=== PATIENT | female | born 1950 | race Caucasian/White ===

== ENCOUNTER 2017-08-22 10:00 | Day surgery (SDC) | payer MEDICARE, BC ==
[~2017-08-22 10:00] MED LIST: Acetaminophen 325 MG Tab PO PRN; Cataract Ophth Solution EYELF ONE; Moxifloxacin 0.5% Ophth Soln 3 ML Bottle EYELF ONE; Ondansetron 4 MG/2 ML SDV IVPUSH PRN; Phenylephrine 10% Ophth Soln 5 ML Bot EYELF ONE; Phenylephrine 10% Ophth Soln 5 ML Bot EYELF PRN; Povidone-Iodine 5% Sterile Ophth Soln 30 ML Bottle EYELF ONE; Proparacaine 0.5% Ophth Soln 15 ML Bottle EYELF ONE; Sodium Chloride 0.9% 10 ML Syringe FLUSH PRN; Timolol Maleate 0.5% Ophth Soln 5 ML Bottle EYELF ONE
[2017-08-22] MEDS ORDERED: Sodium Chloride 0.9% 10 ML Syringe IV ONE (10:01)
[2017-08-22] MEDS ORDERED: Midazolam 1 MG/ML 2 ML SDV IV ONE (10:01)
[2017-08-22] MEDS ORDERED: Dexamethasone 4 MG/ML SDV IV ONE (10:01)
[2017-08-22] MEDS ORDERED: Tetracaine HCl/PF 0.5% 4 ML Bottle EYELF ONE (10:49)
[2017-08-22] MEDS ORDERED: Povidone-Iodine 5% Sterile Ophth Soln 30 ML Bottle EYELF ONE (10:49)
[2017-08-22] MEDS ORDERED: Lidocaine 1% 30 ML SDV ONE (10:49)
[2017-08-22] MEDS ORDERED: Dexamethasone/Neomycin/Polymyxin B Ophth Oint 3.5 GM Tube EYELF ONE (10:50)
[2017-08-22] MEDS ORDERED: Apraclonidine 0.5% Ophth Soln 5 ML Bot EYELF ONE (10:50)
[2017-08-22] MEDS ORDERED: Chondroitin Sulfate/Hyaluronate Sodium Ophth Inj 0.75 ML Syringe EYELF ONE (10:51)
[2017-08-22] MEDS ORDERED: Balanced Salt Solution Ophth Irrig 500 ML Bottle IOCULAR ONE (10:51)
[2017-08-22] MEDS ORDERED: Vancomycin 500 MG SDV EYELF ONE (10:51)
--- NOTE | 2017-08-22 11:39 | OR ---
DATE: 08/22/2017 PREOPERATIVE DIAGNOSIS: Visually significant mixed cataract, left eye. POSTOPERATIVE DIAGNOSIS: Visually significant mixed cataract, left eye. PROCEDURE: Extracapsular cataract extraction with intraocular lens implant, left eye. ANESTHESIA: Topical/local MAC. COMPLICATIONS: None. INDICATION: Ms. Cheung was seen in the clinic. She has complained of a slow progressive decrease in vision. The clinical examination revealed visually significant cataract. I explained options; I offered cataract surgery; and I explained risks including but not limited to infection, retinal detachment, loss of vision, and need for additional surgery amongst others. We discussed implant options. She has requested a Symfony implant. I did explain the increased potential for glare, halo, and dysphotopsia. I also explained that she may still require glasses for some activities. She is symptomatic, voiced an understanding with respect to risks, limitations, and wished to proceed. OPERATIVE DESCRIPTION: After informed consent was obtained and the risks, benefits, and alternatives were explained, the patient was brought to the operative suite and topical anesthesia was administered. The patient was then prepped and draped in the sterile fashion, and attention was placed on the left eye. A sterile lid speculum was placed into the left eye to allow operative exposure. A full-thickness paracentesis was made in the temporal portion of the operative eye. Preservative-free lidocaine 0.1 mL was injected into the anterior chamber followed by viscoelastic. A full-thickness corneal incision was then made into the anterior chamber. A bent needle cystotome was used to create a small juanpablo in the anterior capsule. The capsulorrhexis forceps was then used to create a 360-degree curvilinear capsulorrhexis. The nucleus was then removed using a phacoemulsification handpiece, and the remaining cortical material was then removed with irrigation and aspiration handpiece. Following removal of the cortical material, the capsular bag was then inspected and noted to be free of any holes or tears. Viscoelastic was then injected into the capsular bag, and the intraocular lens was inserted into the capsular bag. The viscoelastic material was then removed from both the anterior and posterior chambers and from behind the IOL. The lens and capsular bag were then reinspected. The IOL was well centered, and the capsular bag intact. The wound and paracentesis sites were inspected and hydrated with balanced saline solution. Both were found to be self-sealing. The intraocular pressure was assessed digitally and found to be within normal range. A good red reflex was noted at the completion of the procedure. No complications occurred during the operation. At the completion of the procedure, Maxitrol, Voltaren, and Iopidine drops were placed into the operative eye. A sterile eye shield was placed over the operative eye, and the patient was transported to the postoperative recovery area having tolerated the procedure well. Postoperative instructions were given along with a postoperative appointment. The patient was advised to call with any questions or concerns. [facility] /[id number]
[2017-08-22 13:24] VITALS: BP 121/67
== END 2017-08-22 11:50 | disposition home or self-care (01) ==
LOC: DL.SDS 10:00
PROVIDERS: ATTEND Ophthalmology
DX: H25.812 Combined forms of age-related cataract, left eye (principal); I10 Essential (primary) hypertension; E66.9 Obesity, unspecified; Z68.38 Body mass index [BMI] 38.0-38.9, adult; F32.9 Major depressive disorder, single episode, unspecified; Z87.891 Personal history of nicotine dependence; Z79.899 Other long term (current) drug therapy; Z88.0 Allergy status to penicillin; Z88.7 Allergy status to serum and vaccine
CPT/HCPCS: 00142; 66984; A9270; J1100; J2250; J3370; J7050

== ENCOUNTER 2018-10-24 05:52 | Day surgery (SDC) | payer MEDICARE, BC ==
[2018-10-24] MEDS ORDERED: Midazolam 1 MG/ML 2 ML SDV IV ONE ×7 (05:53→07:11)
[2018-10-24] MEDS ORDERED: fentaNYL 100 MCG/2 ML SDV IV ONE ×5 (05:53→07:13)
[2018-10-24] MEDS ORDERED: Sodium Chloride 0.9% 10 ML Syringe FLUSH PRN (06:00)
[2018-10-24] MEDS ORDERED: Dextrose 5%-0.45% NaCl 1,000 ML IV SCH (06:00)
[2018-10-24] MEDS ORDERED: Midazolam 1 MG/ML 2 ML SDV ONE (06:18)
[2018-10-24] MEDS ORDERED: fentaNYL 100 MCG/2 ML SDV ONE (06:19)
[2018-10-24 10:59] VITALS: BP 121/83
--- NOTE | 2018-10-24 13:22 | OR ---
DATE: 10/24/2018 PROCEDURE PERFORMED: Total colonoscopy, NBI, and cold snare polypectomy. INSTRUMENT USED: [id number] Olympus video colonoscope. PREMEDICATIONS: Fentanyl 150 mcg intravenous, Versed 4 mg intravenous, and nasal O2 cannula. The procedure was done under pulse oximetry, BP recording, and engine monitor. INDICATION: Screening colonoscopic examination is done for detection of any polypoid lesions and removal, endoscopic hemostasis therapy if needed. DESCRIPTION OF PROCEDURE: Initial rectal exam was unremarkable. Rigid anoscopy was normal. Colonoscope was passed with ease. Numerous scattered diverticula were noted in the colon, more so distal left colon along with deformity. The scope was passed with ease up to the ileocecal area. Photographs were taken of the normal-appearing cecum identified by landmarks of appendiceal orifice and double-bulged ileocecal folds. No bleeding was noted from any of the visualized areas at the commencement of the examination. The bowel preparation was found to be adequate, [place] scale 2 in all the regions. No stricture, no vascular ectasia. No large isolated ulcerations seen. No evidence of diffuse inflammatory bowel disease in the form of friability, contact bleeding, or ulcerations. Probing the proximal sides of folds and flexures using adequate distention and clearing of the stool material, withdrawal of the scope was made. In the hepatic flexure area, superficial 1-cm sized benign-appearing sessile polyp was noted, NBI views were obtained. Photographs were taken. Piecemeal polypectomy was done, and the tissues were retrieved and sent for histopathology. No bleeding was noted from any of the visualized areas at the completion of examination. IMPRESSION: 1. Diverticulosis. 2. Colonic polyp. The patient tolerated the procedure well. [facility] /[id number]
--- NOTE | 2018-10-24 13:52 | LETTER ---
10/24/2018 Melvi Rosas MD [address] [place] [id number] RE: HARRISMUKESHGEORGEJULES ELIZONDO : [address] Rosas: Ms. George Harris had colonoscopic examination done this morning and she tolerated the procedure well. I herewith send a copy of the endoscopy note and photographs for your review. Thank you. Sincerely, [facility] /[id number]
== END 2018-10-24 09:34 | disposition home or self-care (01) ==
LOC: DL.ENDO 05:52
PROVIDERS: ATTEND Internal Medicine Gastroenterology
DX: D12.3 Benign neoplasm of transverse colon (principal); K57.30 Diverticulosis of large intestine without perforation or abscess without bleeding; I10 Essential (primary) hypertension; J45.909 Unspecified asthma, uncomplicated; E66.09 Other obesity due to excess calories; Z88.0 Allergy status to penicillin; Z88.7 Allergy status to serum and vaccine; Z79.82 Long term (current) use of aspirin; Z68.36 Body mass index [BMI] 36.0-36.9, adult
CPT/HCPCS: 45385; J2250; J3010; J7042

== ENCOUNTER 2022-08-11 05:22 | Day surgery (SDC) | payer MEDICARE, BC ==
[~2022-08-11 05:22] MED LIST changes: -Acetaminophen 325 MG Tab PO PRN; -Cataract Ophth Solution EYELF ONE; +Dextrose 5%-0.45% NaCl 1,000 ML IV SCH; -Moxifloxacin 0.5% Ophth Soln 3 ML Bottle EYELF ONE; -Ondansetron 4 MG/2 ML SDV IVPUSH PRN; -Phenylephrine 10% Ophth Soln 5 ML Bot EYELF ONE; -Phenylephrine 10% Ophth Soln 5 ML Bot EYELF PRN; -Povidone-Iodine 5% Sterile Ophth Soln 30 ML Bottle EYELF ONE; -Proparacaine 0.5% Ophth Soln 15 ML Bottle EYELF ONE; +Sodium Chloride 0.9% 10 ML Syringe FLUSH SCH; -Timolol Maleate 0.5% Ophth Soln 5 ML Bottle EYELF ONE
[2022-08-11] MEDS ORDERED: Dextrose 5%-0.45% NaCl 1,000 ML IV SCH (06:00)
[2022-08-11 09:15] VITALS: BP 101/61; PULSE 72
== END 2022-08-11 09:22 | disposition home or self-care (01) ==
LOC: DL.ENDO 05:22
PROVIDERS: ATTEND Internal Medicine Gastroenterology
DX: K63.5 Polyp of colon (principal); K57.30 Diverticulosis of large intestine without perforation or abscess without bleeding; K55.20 Angiodysplasia of colon without hemorrhage; E66.9 Obesity, unspecified; J45.909 Unspecified asthma, uncomplicated; I10 Essential (primary) hypertension; F32.A Depression, unspecified; Z88.0 Allergy status to penicillin; Z88.7 Allergy status to serum and vaccine; Z98.890 Other specified postprocedural states; Z90.710 Acquired absence of both cervix and uterus; Z79.899 Other long term (current) drug therapy; Z68.35 Body mass index [BMI] 35.0-35.9, adult
CPT/HCPCS: 00813; J7042

== ENCOUNTER 2024-08-06 21:25 | Emergency (ER) | payer MEDICARE, BC ==
[2024-08-06] MEDS: oxyCODONE 5 MG Tab PO ONE (22:52)
[2024-08-07] MEDS: oxyCODONE 5 MG Tab PO ONE (00:02)
[2024-08-07] MEDS: Take Home: Acetaminophen/HYDROcodone 325-5 MG, 5 Tab Pack PO ONE (00:03)
[2024-08-07 00:20] VITALS: BP 127/96; PULSE 91
== END 2024-08-07 00:06 | disposition home or self-care (01) ==
LOC: DL.ED 21:25
DX: S01.01XA Laceration without foreign body of scalp, initial encounter (principal); S86.912A Strain of unspecified muscle(s) and tendon(s) at lower leg level, left leg, initial encounter; S20.212A Contusion of left front wall of thorax, initial encounter; I25.10 Atherosclerotic heart disease of native coronary artery without angina pectoris; I25.2 Old myocardial infarction; Z88.7 Allergy status to serum and vaccine; Z88.0 Allergy status to penicillin; Z79.82 Long term (current) use of aspirin; Z79.51 Long term (current) use of inhaled steroids; Z79.899 Other long term (current) drug therapy; Y93.89 Activity, other specified; W01.198A Fall on same level from slipping, tripping and stumbling with subsequent striking against other object, initial encounter
CPT/HCPCS: 29125; 70450; 71046; 73140; 73560; 99283; 99284; A9270